=== PATIENT | male | born 1960 | race Caucasian/White ===

== ENCOUNTER 2022-07-16 09:04 | Day surgery (SDC) | payer MEDICAID ==
[2022-07-13 12:15] LABS: Basophils # (auto) 0.1 10 ^3/uL (0-0.2); Eosinophils # (auto) 0.3 10 ^3/uL (0-0.8); Hemoglobin 7.2 g/dL (13.5-17.5); Lymphocytes # (auto) 0.7 10 ^3/uL (0.4-5.4); Mean Corpuscular Volume 108.8 fL (80.0-100.0); Monocytes # (auto) 0.7 10 ^3/uL (0-1.3); Neutrophils # (auto) 4.3 10 ^3/uL (1.6-8.6); White Blood Cell 6.1 10^3/uL (4.4-10.8)
[2022-07-13 12:17] LABS: Basophils % (auto) 1.3 % (0.0-2.0); Eosinophils % (auto) 4.8 % (0.0-7.0); Hematocrit 24.1 % (41.0-53.0); Lymphocytes % (auto) 11.9 % (10.0-50.0); Mean Corpuscular Hemoglobin 32.6 pg (28.0-32.0); Mean Corpuscular Hgb Conc. 29.9 g/dL (32.0-36.0); Monocytes % (auto) 10.8 % (0.0-12.0); Neutrophils % (auto) 71.2 % (37.0-80.0); Nucleated Red Blood Cells % 0.1 %; Red Blood Cells 2.22 10^6/uL (4.5-5.90); Red Cell Distribution Width 18.7 % (11.8-14.3)
[2022-07-13 12:31] LABS: INR 0.95 (0.9-1.15); Partial Thromboplastin Time 27.3 sec (24.6-33.4)
[2022-07-13 12:57] LABS: Potassium 4.7 mmol/L (3.5-5.1)
[2022-07-13 13:24] LABS: Albumin 3.3 g/dL (3.4-5.0); BUN/Creatinine Ratio 16.1; Bilirubin, Total 0.3 mg/dL (0.2-1.0); Calcium 8.9 mg/dL (8.5-10.1); Total Protein 6.6 g/dL (6.4-8.2)
[~2022-07-16] VITALS: Ht 172.7 cm; Wt 81.6 kg
[~2022-07-16 09:04] MED LIST: ALBUAER3 IN; ALL100T PO; ASCO500T11 PO; ATO40T PO; CHOL200021 PO; CILO100T PO; CLOP75TA28 PO; DOCU100T15 PO; FAMO-68 PO; FER325T PO; FLUT250M2 IN; MULT-1018 OR; NIC21P TD; SEVE800T8 PO
[2022-07-16] MEDS ORDERED: LIDOCAINE VISCOUS 2% 15ML UD ONE (11:34)
[2022-07-16] MEDS ORDERED: diphenhdrAMINE HCL 50 MG/1 ML VL ONE (11:35)
[2022-07-16] MEDS: fentaNYL CITRATE 100 MCG/2 ML VL ONE ×3 (11:54→12:16)
[2022-07-16] MEDS: MIDAZOLAM HCL 5 MG/ML-1ML VIAL ONE ×3 (11:54→12:16)
[2022-07-16 13:00] VITALS: BP 150/72
== END 2022-07-16 13:00 | disposition home or self-care (01) ==
LOC: GI 09:04
PROVIDERS: ATTEND Internal Medicine Gastroenterology
DX: D64.9 Anemia, unspecified (principal); K57.30 Diverticulosis of large intestine without perforation or abscess without bleeding; K64.8 Other hemorrhoids; K29.80 Duodenitis without bleeding; K63.89 Other specified diseases of intestine; K31.89 Other diseases of stomach and duodenum; I10 Essential (primary) hypertension; E78.5 Hyperlipidemia, unspecified; M10.9 Gout, unspecified; F17.200 Nicotine dependence, unspecified, uncomplicated; Z98.890 Other specified postprocedural states; Z79.899 Other long term (current) drug therapy; Z86.2 Personal history of diseases of the blood and blood-forming organs and certain disorders involving the immune mechanism
CPT/HCPCS: 36415; 43235; 45378; 80053; 85025; 85610; 85730; J1200; J2250; J3010; J7030; U0003; 99152

== ENCOUNTER 2022-09-17 08:31 | Day surgery (SDC) | payer MEDICAID ==
[2022-09-16 09:36] LABS: Urine WBC None Seen /hpf (0 - 3)
[2022-09-16 09:49] LABS: Urine Bacteria NONE SEEN /hpf (None Seen); Urine Blood Negative /uL (Negative); Urine Hyaline Cast FEW /lpf (0 - 2); Urine Specific Gravity 1.007 (1.001-1.035)
[2022-09-16 09:50] LABS: Basophils # (auto) 0.1 10 ^3/uL (0-0.2); Basophils % (auto) 1.2 % (0.0-2.0); Eosinophils # (auto) 0.4 10 ^3/uL (0-0.8); Eosinophils % (auto) 5.5 % (0.0-7.0); Hematocrit 34.3 % (41.0-53.0); Hemoglobin 10.9 g/dL (13.5-17.5); Lymphocytes # (auto) 0.6 10 ^3/uL (0.4-5.4); Lymphocytes % (auto) 8.4 % (10.0-50.0); Mean Corpuscular Hemoglobin 29.6 pg (28.0-32.0); Mean Corpuscular Hgb Conc. 31.9 g/dL (32.0-36.0); Mean Corpuscular Volume 92.7 fL (80.0-100.0); Monocytes # (auto) 0.9 10 ^3/uL (0-1.3); Monocytes % (auto) 11.4 % (0.0-12.0); Neutrophils # (auto) 5.5 10 ^3/uL (1.6-8.6); Neutrophils % (auto) 73.5 % (37.0-80.0); Red Cell Distribution Width 17.4 % (11.8-14.3); White Blood Cell 7.5 10^3/uL (4.4-10.8)
[2022-09-16 09:57] LABS: INR 0.97 (0.9-1.15); Partial Thromboplastin Time 27.6 sec (24.6-33.4)
[2022-09-16 10:05] LABS: Albumin 3.7 g/dL (3.4-5.0); Calcium 10.2 mg/dL (8.5-10.1); Potassium 4.6 mmol/L (3.5-5.1)
[2022-09-16 10:08] LABS: BUN/Creatinine Ratio 21.5; Bilirubin, Total 0.2 mg/dL (0.2-1.0); Total Protein 7.7 g/dL (6.4-8.2)
[~2022-09-17] VITALS: Ht 175.3 cm; Wt 81.6 kg
[~2022-09-17 08:31] MED LIST changes: -CLOP75TA28 PO
[2022-09-17] MEDS ORDERED: LIDOCAINE 2% (LOCAL ANESTH.) PF 5ml SDV IJ ONE (08:32)
[2022-09-17] MEDS ORDERED: HYDROmorphone HCL 2 MG/ML VL/or syr IV PRN (11:30)
[2022-09-17] MEDS ORDERED: ONDANSETRON HCL 4 MG/2 ML VIAL IV PRN (11:30)
[2022-09-17] MEDS ORDERED: MIDAZOLAM HCL 2MG/2ML 2ml VIAL (1mg/ml) ONE (11:31)
[2022-09-17] MEDS ORDERED: fentaNYL CITRATE 100 MCG/2 ML VL ONE (11:31)
[2022-09-17] MEDS ORDERED: PROPOFOL 10 MG/ML 20 ML IV ONE (11:52)
[2022-09-17] MEDS ORDERED: ONDANSETRON HCL 4 MG/2 ML VIAL ONE (11:52)
[2022-09-17 12:30] VITALS: BP 133/66
== END 2022-09-17 12:35 | disposition home or self-care (01) ==
LOC: GI 08:31
PROVIDERS: ATTEND Internal Medicine Gastroenterology
DX: Q27.33 Arteriovenous malformation of digestive system vessel (principal); D64.9 Anemia, unspecified; K29.90 Gastroduodenitis, unspecified, without bleeding; I11.9 Hypertensive heart disease without heart failure; I73.9 Peripheral vascular disease, unspecified; M10.9 Gout, unspecified; Z79.899 Other long term (current) drug therapy; Z20.822 Contact with and (suspected) exposure to COVID-19
CPT/HCPCS: 36415; 43255; 80053; 81001; 85025; 85610; 85730; J2001; J2250; J2405; J2704; J3010; J7030; U0003

== ENCOUNTER 2023-02-25 09:12 | Day surgery (SDC) | payer MEDICAID ==
[2023-02-23 10:28] LABS: Basophils # (auto) 0.1 10 ^3/uL (0-0.2); Basophils % (auto) 1.4 % (0.0-2.0); Eosinophils # (auto) 0.4 10 ^3/uL (0-0.8); Eosinophils % (auto) 5.8 % (0.0-7.0); Hematocrit 29.4 % (41.0-53.0); Hemoglobin 9.9 g/dL (13.5-17.5); Lymphocytes # (auto) 0.8 10 ^3/uL (0.4-5.4); Lymphocytes % (auto) 11.4 % (10.0-50.0); Mean Corpuscular Hgb Conc. 33.6 g/dL (32.0-36.0); Mean Corpuscular Volume 101.3 fL (80.0-100.0); Monocytes # (auto) 0.8 10 ^3/uL (0-1.3); Monocytes % (auto) 11.6 % (0.0-12.0); Neutrophils % (auto) 69.8 % (37.0-80.0); Nucleated Red Blood Cells % 0.1 %; Red Cell Distribution Width 19.3 % (11.8-14.3); White Blood Cell 7.2 10^3/uL (4.4-10.8)
[2023-02-23 10:34] LABS: INR 0.96 (0.9-1.15); Partial Thromboplastin Time 26.6 sec (24.6-33.4)
[2023-02-23 10:52] LABS: Calcium 9.8 mg/dL (8.5-10.1); Potassium 3.9 mmol/L (3.5-5.1)
[2023-02-23 10:58] LABS: Albumin 3.4 g/dL (3.4-5.0); BUN/Creatinine Ratio 19.6 (10.0-20.0); Bilirubin, Total 0.3 mg/dL (0.2-1.0); Total Protein 7.3 g/dL (6.4-8.2)
[~2023-02-25] VITALS: Ht 172.7 cm; Wt 83.9 kg
[~2023-02-25 09:12] MED LIST changes: +METO25TA93 PO; -NIC21P TD; +PANT40TA2 PO; -SEVE800T8 PO
[2023-02-25] MEDS ORDERED: LIDOCAINE VISCOUS 2% 15ML UD ONE (09:26)
[2023-02-25] MEDS ORDERED: diphenhdrAMINE HCL 50 MG/1 ML VL ONE (09:27)
[2023-02-25] MEDS: fentaNYL CITRATE 100 MCG/2 ML VL ONE ×2 (09:40→09:43)
[2023-02-25] MEDS: MIDAZOLAM HCL 5 MG/ML-1ML VIAL ONE ×2 (09:40→09:43)
[2023-02-25 10:55] VITALS: BP 118/64
== END 2023-02-25 11:07 | disposition home or self-care (01) ==
LOC: GI 09:12
PROVIDERS: ATTEND Internal Medicine Gastroenterology
DX: Q27.33 Arteriovenous malformation of digestive system vessel (principal); D64.9 Anemia, unspecified; K29.50 Unspecified chronic gastritis without bleeding; K29.80 Duodenitis without bleeding; Z20.822 Contact with and (suspected) exposure to COVID-19
CPT/HCPCS: 36415; 43255; 80053; 85025; 85610; 85730; J1200; J2250; J3010; J7030; U0003